=== PATIENT | female | born 1955 | race Caucasian/White ===

== ENCOUNTER 2022-06-20 07:18 | Observation (INO) ==
--- NOTE | 2022-05-08 13:38 | PAT Medication Instructions ---
Medication Instructions Date of Service May 08, 2022 Home Medications Medication Instructions Recorded Romel García #1 ea 04/02/22 cyclobenzaprine 10 mg tablet 10 mg PO BID PRN Fish Oil 1 cap PO QAM famotidine 40 mg tablet 40 mg PO QPM lisinopril 20 mg-hydrochlorothiazide 25 mg tablet 1 tab PO QAM methimazole 5 mg tablet 5 mg PO QAM oxybutynin chloride 10 mg tablet,extended release 24 hr 10 mg PO QAM pantoprazole 40 mg tablet,delayed release 40 mg PO QAM pramipexole 0.5 mg tablet 0.5 mg PO HS simvastatin 40 mg tablet 40 mg PO QPM cholecalciferol (vitamin D3) 125 mcg (5,000 unit) tablet (Vitamin D3) 125 mcg PO DAILY escitalopram oxalate 20 mg tablet (Lexapro) 20 mg PO QAM tumeric 100 mg-rafi 150 mg-olive 50 mg-oreg 150 mg-caprylate capsule 1 cap PO BID vitamin E 200 unit capsule 400 unit PO DAILY STOP taking 2 weeks before surgery (or as soon as possible if surgery is within 2 weeks) Fish Oil 1 cap PO QAM tumeric 100 mg-rafi 150 mg-olive 50 mg-oreg 150 mg-caprylate capsule 1 cap PO BID vitamin E 200 unit capsule 400 unit PO DAILY DO NOT take the morning of surgery cyclobenzaprine 10 mg tablet 10 mg PO BID PRN lisinopril 20 mg-hydrochlorothiazide 25 mg tablet 1 tab PO QAM oxybutynin chloride 10 mg tablet,extended release 24 hr 10 mg PO QAM cholecalciferol (vitamin D3) 125 mcg (5,000 unit) tablet (Vitamin D3) 125 mcg PO DAILY Take morning of surgery With a small sip of water, OTHERWISE NOTHING TO EAT OR DRINK AFTER MIDNIGHT: methimazole 5 mg tablet 5 mg PO QAM pantoprazole 40 mg tablet,delayed release 40 mg PO QAM escitalopram oxalate 20 mg tablet (Lexapro) 20 mg PO QAM Take evening before surgery cyclobenzaprine 10 mg tablet 10 mg PO BID PRN (if needed) famotidine 40 mg tablet 40 mg PO QPM pramipexole 0.5 mg tablet 0.5 mg PO HS simvastatin 40 mg tablet 40 mg PO QPM Other Notes If you have any questions please call us at [phone] or [phone] or [phone] or [phone]
--- NOTE | 2022-05-12 13:24 | Anesthesiology Consultation ---
Date of Service May 12, 2022 Assessment & Plan (1) Encounter for pre-operative examination: - COVID screening: Per assessment on 05/12/2022: Travel screen-cruise to [place] planned returning 05/31/22, no known COVID-19 positive contacts or current COVID- 19 related symptoms in past 2 weeks. Pt vaccinated. Surgeon arranging preop COVID testing, scheduled 06/18/2022. Awaiting results. Chart Review Chart Review: Acceptable Risk for Surgery and Patient seen in Pre Admission Testing Teaching & Discussion Pre-Anesthesia Teaching/Discussion Notes: Instructed NPO after midnight before surgery, except medications with 15 cc of water. Medication instructions provided according to the PAT guidelines. History Surgery Operation Date: 06/20/22 07:00 Proposed Procedures p Right Total Knee Arthroplasty - James Edwards DO Height/Weight Height: 5 ft 2 in Weight: 97.5 kg Allergies Allergy/AdvReac Type Severity Reaction Status Date / Time No Known Allergies Allergy Verified 05/08/22 10:55 Medications Home Medications Medication Instructions Recorded Confirmed Last Taken Wheeled Walker #1 ea 04/02/22 04/02/22 Unknown cyclobenzaprine 10 mg tablet 10 mg PO BID PRN 04/02/22 05/08/22 Unknown docosahexaenoic acid (dha)-epa 120 1 cap PO QA 04/02/22 05/08/22 Unknown mg-180 mg capsule (Fish Oil) famotidine 40 mg tablet 40 mg PO QPM 04/02/22 05/08/22 Unknown lisinopril 20 1 tab PO QAM 04/02/22 05/08/22 Unknown mg-hydrochlorothiazide 25 mg tablet methimazole 5 mg tablet 5 mg PO QAM 04/02/22 05/08/22 Unknown oxybutynin chloride 10 mg 10 mg PO QAM 04/02/22 05/08/22 Unknown tablet,extended release 24 hr pantoprazole 40 mg tablet,delayed 40 mg PO QAM 04/02/22 05/08/22 Unknown release pramipexole 0.5 mg tablet 0.5 mg PO HS 04/02/22 05/08/22 Unknown simvastatin 40 mg tablet 40 mg PO QPM 04/02/22 05/08/22 Unknown cholecalciferol (vitamin D3) 125 125 mcg PO DAILY 05/08/22 05/08/22 Unknown mcg (5,000 unit) tablet (Vitamin D3) escitalopram oxalate 20 mg tablet 20 mg PO QAM 05/08/22 05/08/22 Unknown (Lexapro) tumeric 100 mg-rafi 150 mg-olive 1 cap PO BID 05/08/22 05/08/22 Unknown 50 mg-oreg 150 mg-caprylate capsule vitamin E 200 unit capsule 400 unit PO DAILY 05/08/22 05/08/22 Unknown Past Medical History Medical History (Updated 05/12/22 @ 13:40 by Avis Veliz PA-C) Acid reflux controlled, stable per pt Depression Fibromyalgia Hiatal hernia High cholesterol History of stomach ulcers Hx of cervical cancer "atypical cells" Hypertension controlled, stable per pt Hyperthyroidism Migraine Overactive bladder Prediabetes Thyroid nodule Patient denies h/o stroke, seizures, heart attack, heart failure, blood clots or blood transfusions. Exercise / Class Metabolic Activity II 4-5 Yardwork/Stairs/Walk up hill (denies CP or SOB with 1 FOS) Past Family History Family History Sister Family history of diabetes mellitus Other No family history of adverse response to anesthesia Past Surgical History Surgical History H/O foot surgery rt/left hammertoe and bunion correction History of colonoscopy History of conization of cervix History of esophagogastroduodenoscopy (EGD) History of tooth extraction Nausea and vomiting after administration of anesthetic agent Past Anesthesia History No Hx of Anesthesia Complications and No Family Hx of Anesthesia Complications History of PONV No Hx of Motion Sickness and History of PONV (denies needing scop patch) Social History Smoking Status: Never smoker Do You Dip or Chew Tobacco: No Hx Alcohol Use: No substance use type: does not use Review of Systems Snoring, denies witnessed apneas. Patient denies chest pain, shortness of breath, dyspnea on exertion, fever, chills, cough, wheezing, or palpitations. Physical Exam Vital Signs Vitals BP 129/80 P 79 TEMP 98.3 SP02 96% on RA RESP 17 Physical Full cervical extension range of motion without pain TMD 3.5 finger breadths Mallampati Score 2 Dentition: intact, several missing teeth; denies chipped or loose teeth, caps/crowns, implants or bridges Lungs: normal respiratory effort. Clear throughout to auscultation, no adventitious breath sounds Cardiac: regular rate and rhythm, no murmurs noted Carotid arteries: negative bruit bilat Lab Results Anesthesia Preop Results Results Anesthesia Widget: WBC 4.54 K/uL (4.8-10.8) L 05/12/22 Hgb 13.9 g/dL (12.0-16.0) 05/12/22 Hct 41.0 % (37-47) 05/12/22 Plt 275 K/uL (130-400) 05/12/22 Na 139 mmol/L (136-145) 05/12/22 K 3.7 mmol/L (3.5-5.1) 05/12/22 Cl 105 mmol/L (98-107) 05/12/22 CO2 27 mmol/L (21-32) 05/12/22 BUN 10 mg/dl (6-23) 05/12/22 Creat 0.61 mg/dl (0.6-1.2) 05/12/22 Glucose Level 91 mg/dl (70-99(Fasting)) 05/12/22 PT 10.7 Seconds (9.0-12.0) 05/12/22 PTT 26.6 Seconds (21.0-31.0) 05/12/22 INR 1.0 (0.9-1.1) 05/12/22 HA1c 5.6 % (4.5-5.6) 05/12/22 Blood Type B Positive 05/12/22 Antibody Screen NEGATIVE 05/12/22 Testing Electrocardiogram Date: 05/12/22 NSR, rate 71 bpm Chest X-Ray Date: 05/12/22 Lung volumes are normal. Lungs are clear. There is no pneumothorax or pleural effusion. There is mild cardiomegaly. Mediastinal contours are normal. There is no evidence for pulmonary edema. IMPRESSION: No acute cardiopulmonary findings. Mild cardiomegaly.
--- NOTE | 2022-06-19 12:17 | History & Physical Report ---
Date of Service June 19, 2022 Assessment & Plan (1) Osteoarthritis of right knee: We will proceed with a right total knee arthroplasty. Postoperatively she will be started on aspirin for DVT prophylaxis and kept overnight in the hospital for postoperative medical management. She plans to have the hospital set up home health for discharge. History of Present Illness Chief Complaint: Osteoarthritis of the right knee. Primary Care Provider: Danna Hensley PA-C Ailyn is a pleasant 66-year-old female who has been dealing with a year long history of right knee pain. She twisted her knee about a year ago. She has been having knee pain since. She has been following up with [facility]. She has had x-rays as well as injections. She has done physical therapy without relief. She is still struggling with her right knee. It swells all the time. She has trouble walking long distances or going upand down stairs. X-rays and clinical examination by diagnostic for advanced arthritis of the right knee. After failing conservative treatment, she has elected proceed with a right total knee arthroplasty. Allergies Allergy/AdvReac Type Severity Reaction Status Date / Time No Known Allergies Allergy Verified 05/08/22 10:55 Home Medications Medication Instructions Recorded Confirmed Type Wheeled Walker #1 ea 04/02/22 04/02/22 Rx cyclobenzaprine 10 mg tablet 10 mg PO BID PRN Pain 04/02/22 05/08/22 History docosahexaenoic acid (dha)-epa 120 1 cap PO QAM 04/02/22 05/08/22 History mg-180 mg capsule (Fish Oil) famotidine 40 mg tablet 40 mg PO QPM 04/02/22 05/08/22 History lisinopril 20 1 tab PO QAM 04/02/22 05/08/22 History mg-hydrochlorothiazide 25 mg tablet methimazole 5 mg tablet 5 mg PO QAM 04/02/22 05/08/22 History oxybutynin chloride 10 mg 10 mg PO QAM 04/02/22 05/08/22 History tablet,extended release 24 hr pantoprazole 40 mg tablet,delayed 40 mg PO QAM 04/02/22 05/08/22 History release pramipexole 0.5 mg tablet 0.5 mg PO HS 04/02/22 05/08/22 History simvastatin 40 mg tablet 40 mg PO QPM 04/02/22 05/08/22 History cholecalciferol (vitamin D3) 125 125 mcg PO DAILY 05/08/22 05/08/22 History mcg (5,000 unit) tablet (Vitamin D3) escitalopram oxalate 20 mg tablet 20 mg PO QAM 05/08/22 05/08/22 History (Lexapro) tumeric 100 mg-rafi 150 mg-olive 1 cap PO BID 05/08/22 05/08/22 History 50 mg-oreg 150 mg-caprylate capsule vitamin E 200 unit capsule 400 unit PO DAILY 05/08/22 05/08/22 History Past Med/Surg History Medical History Acid reflux controlled, stable per pt Depression Fibromyalgia Hiatal hernia High cholesterol History of stomach ulcers Hx of cervical cancer "atypical cells" Hypertension controlled, stable per pt Hyperthyroidism Migraine Overactive bladder Prediabetes Thyroid nodule Surgical History H/O foot surgery rt/left hammertoe and bunion correction History of colonoscopy History of conization of cervix History of esophagogastroduodenoscopy (EGD) History of tooth extraction Nausea and vomiting after administration of anesthetic agent Family History Sister Family history of diabetes mellitus Other No family history of adverse response to anesthesia Social History Smoking Status: Never smoker Second Hand Exposure: No; Do You Dip or Chew Tobacco: No; Hx Alcohol Use: No Preferred Language: Belarusian Clinical Ob Required: No Beliefs That Will Affect Care: None Current Living Situation: Spouse Feels Safe at Home: Yes Safety Concerns: Feels Safe At This Time Assistive Devices: Glasses Review of Systems All systems reviewed & are unremarkable except as noted in HPI & below. Physical Exam On physical examination of the right knee, she has a slight varus deformity. She has range of motion of 0 to 120 degrees. She has no instability. She has pain of the distal medial femoral condyle and over the medial joint line.. Constitutional WD/WN, vitals as above Eyes PERRL, conjunctivae normal, anicteric sclerae ENMT external ear and nose normal, oropharynx normal Neck trachea midline, no thyromegaly Respiratory normal respiratory effort, lungs clear to auscultation Cardiovascular RRR, no murmur, no edema Gastrointestinal (Abdomen) normal bowel sounds, soft, nontender, no hepatosplenomegaly Skin no rashes, warm and dry Psychiatric A+Ox3, euthymic affect Results & Data Results & Data Laboratory Results . Diagnostic Findings X-rays of the right knee show advanced osteoarthritis with joint space narrowing, osteophyte formation, and [id number] articulation. PG Care Time/CCT Total # of Minutes Spent Total Time Spent with Patient: Total time spent is greater than 50% in coordination of care (as documented) at patient's floor/unit and/or counseling patient: Coding Level of Care Code None Diagnoses Osteoarthritis of right knee M17.11
--- NOTE | 2022-06-20 06:38 | History & Physical Bridge Note ---
Date of Service June 20, 2022 History & Physical Bridge Note I have examined the patient, reviewed the History & Physical and in the interval since the performance of the History & Physical I have noted the following changes of clinical significance: no changes noted
[~2022-06-20 07:18] MED LIST: ACETAMINOPHEN 500 MG TAB PO SCH; ATROPINE SULFATE 0.1 MG/ML 10ML SYR IV PRN; BUPIVACAINE 0.5 % 5 MG/1 ML PF 10ML VIAL ONE; FAMOTIDINE 20 MG TAB PO SCH; GABAPENTIN 300 MG CAP PO SCH; Ketorolac (*for OR use only*) 30 MG, dexAMETHasone 4 MG, KETAMINE HCL (**OR use only) 1... INFIL SCH; LR 500ML BOLUS, THEN 15ML/HR IV SCH; LR 60ML/HR IV SCH; MIDAZOLAM HCL 1 MG/ML 2ML VIAL ONE; ONDANSETRON INJ 2 MG/ML 2 ML VIAL IV PRN; ORTHO JOINT ANESTHETIC ONE; ROPIVACAINE 0.5% 5 MG/ML 30 ML VIAL ONE; TRANEXAMIC ACID 1,000 MG **IV Intra-op IV SCH; TRANEXAMIC ACID 1,000 MG **IV Pre-op IV SCH; ceFAZolin 2000MG 2,000 MG/15 ML SYR IV SCH; dexAMETHasone 4 MG TAB PO SCH; ePHEDrine sulfate 50 MG/ML AMP IV PRN; fentaNYL citrate 100 MCG/2 ML VIAL IV PRN; fentaNYL citrate 100 MCG/2 ML VIAL ONE
[2022-06-20] MEDS ORDERED: SCOPOLAMINE 1 MG TDSY TD ONE (07:52)
[2022-06-20] MEDS ORDERED: CHECK SCOPOLAMINE PATCH PLACEMENT SCH (08:00)
[2022-06-20] MEDS ORDERED: SCOPOLAMINE 1 MG TDSY TD SCH (08:00)
--- NOTE | 2022-06-20 09:23 | Operative Report ---
PG Post Operative Report Pre & Post Diagnosis Operation Date: 06/20/22 08:15 Pre-Op Diagnosis: DJD Right Knee Post-Op Diagnosis: DJD Right Knee I identified the patient and participated in the time-out.: Yes Procedure Operation Date: 06/20/22 08:15 Actual Procedures p Right Total Knee Arthroplasty(Right) - James Edwards DO Surgeon James Edwards DO Logistics Supply Officer James López PA-C Estimated Blood Loss 30 Findings Consistent with Post-Op Diagnosis Specimens Right femoral and tibial bone Description of Procedure Implants used: I used a Jaymie Persona total knee arthroplasty system with a size 6 standard femur, D tibia, 28 oval patella, and a size 12 medial congruent polyethylene bearing. All components were cemented in place with Biomet cement. Raisa arrived [facility] for the above procedure. She was seen in the preoperative holding area and the operative extremity was identified and signed. She was given a preoperative antibiotic, TXA, a spinal anesthetic and an adductor nerve block. She was taken back to the operating room and laid on the table in supine position. She was given basic sedation. The operative knee was then prepped and draped in sterile fashion. A timeout was done, and the patient and the operative extremity was properly identified. A midline incision was made directly over the patella. Dissection was taken down to the extensor mechanism. A subvastus arthrotomy was used. The medial retinaculum was released and the fat pad was mostly excised. The knee was flexed and the ACL, PCL, and meniscus were removed. A drill was sent down the center of the femoral canal followed by an intramedullary silvana. Off that silvana a distal femoral cutting block was placed. 9 mm was resected off the distal femur at 5 of valgus. A posterior referencing AP sizing guide was then placed on the distal femur. The femur measured to be a size 6. 2 drill holes were placed in 3 of external rotation. A 4-in-1 cutting block was then impacted into place. Anterior, posterior, and chamfer cuts were then made. The proximal tibia was then exposed. An external tibial alignment guide was placed. A tibial cut guide was then anchored in place and the proximal tibia was then resected. The posterior aspect of the knee was then opened up and any additional meniscus fragments and osteophytes were removed. The tibia measured to be a size D. The tibial plate was then placed in the appropriate rotation and the tibia was drilled and punched. Trial components were then placed. I used a size 12 medial congruent polyethylene insert. The knee was brought through a full range of motion and felt to be stable. The peg holes for the femoral component were then drilled. The patella was then everted and 9 mm was resected off the posterior aspect of the patella. The patella measured to be a size 28 oval. 3 peg holes were then drilled. A trial patella was placed. The knee was once again brought through a full range of motion and felt to be stable. Trial components were then removed. The surrounding soft tissues were injected with 100 cc of an orthopedic pain control cocktail. All components were then cemented into place with Biomet cement. The final polyethylene insert was then snapped into place. Once cement was dry the tourniquet was deflated. H emostasis was obtained. A dilute betadyne lavage was then done for 3 minutes. The joint was then irrigated with normal saline solution. The subvastus arthrotomy was then closed with #1 Vicryl suture. The skin was closed with 2-0 Vicryl, 3-0V lock suture, and gabriella. A soft compressive dressing was placed. She was then transferred to a hospital bed and taken to the postanesthesia care unit in stable condition. She tolerated the procedure well. James López PA-C, was present for the entire procedure. He was critical for patient positioning, prepping, draping, retraction exposure, wound closure and application of sterile dressing. I attest to the content of the Intraoperative Record and any orders documented therein. Any exceptions are noted below.
[2022-06-20] MEDS ORDERED: PROPOFOL IV EMULSION 10 MG/ML 20 ML VIAL IV ONE (09:28)
[2022-06-20] MEDS ORDERED: LIDOCAINE 2% MPF LOCAL 5 ML VIAL INFIL ONE (09:28)
--- NOTE | 2022-06-20 10:25 | XRay Report ---
RIGHT KNEE 2 VIEWS History: Right total knee arthroplasty. Degenerative arthritis. Postop. FINDINGS: The patient is status post a right total knee arthroplasty. The hardware is intact. No frac ture or dislocation. Skin gabriella are in place. IMPRESSION: Right total knee arthroplasty. No evidence for hardware complication. ACT 112: Negative or not required by law. Electronically signed by: Og Martin M.D. 06/20/2022 10:23 AM
[2022-06-20] MEDS ORDERED: HYDROmorphone INJ 0.5 MG/0.5 ML SYR IV PRN (10:38)
[2022-06-20] MEDS ORDERED: bisacodyL 10 MG SUPP PR PRN (10:38)
[2022-06-20] MEDS ORDERED: MAGNESIUM HYDROXIDE SUSP 30 ML UDC PO PRN (10:38)
[2022-06-20] MEDS ORDERED: METOCLOPRAMIDE HCL INJ 5 MG/ML 2 ML VIAL IV PRN (10:38)
[2022-06-20] MEDS ORDERED: NALOXONE HCL 0.4 MG/1 ML VIAL/CARP IV PRN (10:38)
[2022-06-20] MEDS ORDERED: ONDANSETRON INJ 2 MG/ML 2 ML VIAL IV PRN (10:38)
[2022-06-20] MEDS: SODIUM CHLORIDE 0.9% 1000ML 1,000 ML IV SCH ×2 (10:57→20:25)
[2022-06-20] MEDS: KETOROLAC 30 MG/ML VIAL IV SCH ×2 (11:48→17:40)
--- NOTE | 2022-06-20 12:53 | Anesthesiology Progress Note ---
Date of Service June 20, 2022 Anesthesia Post Procedure Vital Signs Vital Signs: Temp Pulse Pulse Resp BP BP Pulse Ox 06/20/22 12:25 98.4 F 71 18 115/71 94 06/20/22 11:27 98.2 F 61 20 94/59 L 94 06/20/22 10:30 98.1 F 63 18 110/80 94 06/20/22 11:03 97.7 F 61 20 110/66 95 06/20/22 10:20 97.7 F 61 12 117/71 93 06/20/22 10:15 65 15 125/69 94 06/20/22 10:05 62 14 123/72 100 06/20/22 09:55 61 19 112/69 100 06/20/22 09:45 97.2 F L 68 16 110/68 99 06/20/22 07:38 98.6 F 75 22 156/103 H 95 O2 Del Method O2 Flow Rate 06/20/22 12:25 06/20/22 11:27 06/20/22 10:30 Room Air 06/20/22 11:03 Room Air 06/20/22 10:20 Room Air 06/20/22 10:15 Room Air 06/20/22 10:05 Oxymask 06/20/22 09:55 Oxymask 06/20/22 09:45 Oxymask 06/20/22 07:38 Room Air Pain Intensity Right Knee: Pain Intensity: 2 Transfer of Care Handoff Completed per policy Notes Mental Status: alert / awake / arousable and participated in evaluation Patient Amnestic to Procedure: Yes Nausea / Vomiting: adequately controlled Pain: adequately controlled Airway Patency, RR, SpO2: stable & adequate BP & HR: stable & adequate Hydration State: stable & adequate Neuraxial Anesthesia: was administered and sensory block is resolving Anesthetic Complications: no major complications apparent and Pt Satisfied with anesthetic care
[2022-06-20] MEDS: oxyCODONE HCL IR 5 MG TAB (IMMEDIATE RELEASE) PO PRN ×2 (13:39→17:40)
[2022-06-20] MEDS: ACETAMINOPHEN 500 MG TAB PO SCH (15:28)
[2022-06-20] MEDS: ceFAZolin 2000MG 2,000 MG/15 ML SYR IV SCH (15:28)
[2022-06-20] MEDS: DOCUSATE SODIUM 100 MG CAP PO SCH (20:54)
[2022-06-20] MEDS: ASPIRIN 81 MG ECTAB PO SCH (20:54)
[2022-06-20] MEDS ORDERED: PRAMIPEXOLE DIHYDROCHLO 0.5 MG TAB PO SCH (21:00)
[2022-06-20] MEDS ORDERED: SENNA 8.6 MG TAB PO SCH (21:00)
[2022-06-20] MEDS ORDERED: SIMVASTATIN 40 MG TAB PO SCH (21:00)
[2022-06-20] MEDS ORDERED: FAMOTIDINE 40 MG TABLET PO SCH (21:00)
[2022-06-21] MEDS: ceFAZolin 2000MG 2,000 MG/15 ML SYR IV SCH (00:22)
[2022-06-21] MEDS: KETOROLAC 30 MG/ML VIAL IV SCH ×3 (00:22→11:28)
[2022-06-21] MEDS: ACETAMINOPHEN 500 MG TAB PO SCH ×2 (00:22→07:51)
[2022-06-21] MEDS: oxyCODONE HCL IR 5 MG TAB (IMMEDIATE RELEASE) PO PRN (01:48)
--- NOTE | 2022-06-21 07:36 | Orthopedic Progress Note ---
Date of Service June 21, 2022 Assessment & Plan (1) Status post right knee replacement: Overall she is doing very well. She is not having much pain in the right knee. She will be seen by physical therapy today for ambulation and range of motion exercises. She is on aspirin for DVT prophylaxis. She can be discharged home later today. She will follow-up with orthopedics in 2 weeks. Wilfredo Kline was seen and examined at bedside this morning. Overall she is doing very well. She is not any much pain in the right knee. She has been up and ambulating to the bathroom. She has no complaints.. Review of Systems All systems reviewed & are unremarkable except as noted in HPI & below. Physical Exam On physical examination of the right knee, the dressing is clean and dry. Her leg is out full extension. She has active dorsiflexion plantarflexion of the right ankle.. Results & Data Results & Data Laboratory Results . Diagnostic Findings Postoperative x-rays of the right knee show the prosthesis to be in anatomic alignment without any evidence of fracture, dislocation, or loosening. PG Care Time/CCT Total # of Minutes Spent Total Time Spent with Patient: Total time spent is greater than 50% in coordination of care (as documented) at patient's floor/unit and/or counseling patient: Coding Level of Care Code 98325 Post Operative Follow-Up Diagnoses Status post right knee replacement Z96.651
--- NOTE | 2022-06-21 07:37 | Discharge Summary ---
Date of Service June 21, 2022 Admission HPI (Per Admitting) Ailyn is a pleasant 66-year-old female who has been dealing with a year long history of right knee pain. She twisted her knee about a year ago. She has been having knee pain since. She has been following up with [facility]. She has had x-rays as well as injections. She has done physical therapy without relief. She is still struggling with her right knee. It swells all the time. She has trouble walking long distances or going upand down stairs. X-rays and clinical examination by diagnostic for advanced arthritis of the right knee. After failing conservative treatment, she has elected proceed with a right total knee arthroplasty. Admission Exam (Per Admitting) On physical examination of the right knee, she has a slight varus deformity. She has range of motion of 0 to 120 degrees. She has no instability. She has pain of the distal medial femoral condyle and over the medial joint line.. Principal Diagnosis Same as "Discharge Diagnosis" noted below under Discharge Instructions. Discharge Exam On physical examination of the right knee, the dressing is clean and dry. Her leg is out full extension. She has active dorsiflexion plantarflexion of the right ankle.. Discharge Data Procedures Performed Operation Date: 06/20/22 08:15 Actual Procedures p Right Total Knee Arthroplasty(Right) - James Edwards DO Ordered Studies 06/20/22 05:00 US - OR guided needle placemen Routine Hospital Course (1) Status post right knee replacement: On June 20, 2022 Ailyn arrived at [facility] and underwent a right knee replaced without complication. She had a spinal anesthetic. Postoperatively she was started on aspirin for DVT prophylaxis and transferred to the general orthopedic floors. Her hospital course was uneventful. On postop day #1, her vital signs were stable and her pain was well controlled. She was able to participate well with physical therapy doing ambulation and range of motion exercises. She was then discharged home. She will follow-up with orthopedics in 2 weeks. PG Care Time/CCT Total # of Minutes Spent Total Time Spent with Patient: Total time spent is greater than 50% in coordination of care (as documented) at patient's floor/unit and/or counseling patient: Discharge Plan Discharge Items Patient Disposition: Home - Home Health Services Reason For Visit: DJD Right Knee Discharge Diagnosis: Right knee replacement Activity: As commented below Non-emergency contact: Surgeon Call non-emergency contact if: your wound has increased redness and your wound has increased drainage Follow-up/Referrals: Danna Hensley PA-C [Primary Care Provider] - Diet: Regular Addtl Attending Provider Instructions: Activity and Therapy Recommendations: * If you are using [facility] then therapy will be provided at your home until they feel you have accomplished all of your goals. * If you are using [facility] then Physical Therapy will be provided until they feel you are ready to start Outpatient Physical Therapy. * If you are not using home therapy then Outpatient Physical Therapy should start about 3-5 days from your day of surgery. Therapy will last about 6-10 weeks * It is important not to put a pillow under your knee when you are relaxing or sleeping. It is just as important to make sure you are getting your knee perfectly straight as it is to regain your knee bend. * You were shown a series of exercises in the hospital. Do these exercises three times each day including the exercises you were shown in physical therapy. * Get up and walk several times each day. For the first four weeks, try not to stand or walk for more than one hour at a time. If you do stand or walk for more than one hour, you will not hurt anything, but your leg will likely swell. * As you feel comfortable, you may change from the walker or crutches to a cane and then to independent walking. Medications: * Narcotic You will likely be sent home from the hospital with a prescription for the narcotic pain medication that worked best throughout your stay. * Aspirin Most patients will be required to take Aspirin 81mg twice a day for 6 weeks after surgery. This is obtained [id number] and a prescription is not necessary. * Other medications may be prescribed for specific circumstances. If you have any questions, please call the office at . * Resume previous home medications unless otherwise instructed TEDs/Elastic Stockings: The white elastic stockings help limit swelling and prevent blood clots from forming in your legs.~ The more you wear them, the more they work. Wear them for six weeks. Dressing Care: The dressing can be changed after physical therapy on postop day #1. Daily dry dressing changes for a few days, especially if the incision is still draining some. If the incision is not draining then you may leave the gabriella open to air. If there is a little bit of drainage or if the gabriella are getting stuck on your clothing then cover the incision with a dry dressing. The gabriella will be removed at your 2 week follow-up appointment. Showering: You may shower 5 days from the day of surgery as long as the incision is no longer draining. You may shower with the gabriella exposed. Let soapy water run over the gabriella and pat them dry. Do not scrub or soak the incision. Things To Watch For: * Drainage from the incision site that occurs more than one week after your surgery. * Increased redness at the incision site. * Fever above 102 degrees Fahrenheit. * Unusual chest pain or shortness of breath. * Call [facility] at with any of the above problems Follow-Up Visit: Follow-up with Dr. Edwards's PA (James López) 2-3 weeks after your day of surgery. He will remove your gabriella and answer any questions. If you have any additional questions or concerns, Dr Edwards is usually in the office at the same time and will be available An appointment was probably scheduled when you signed-up for surgery in the office. If you have any questions call Office Instructions: More detailed instructions as well as Frequently Asked Questions were provided in a folder by our office when you signed-up for surgery. Please review these instructions when you get home. If you have any further questions or concerns, please feel free to call the office at [phone] Pending Studies at Discharge: No Stand-Alone Forms: [facility], Smoking Cessation Medications and DC Order Prescriptions: New oxycodone-acetaminophen 5-325 mg tablet 1 tab PO Q6H PRN (Reason: pain) Qty: 30 0RF aspirin 81 mg Tablet,Delayed Release (Dr/Ec) 81 mg PO BID 42 Days Qty: 84 0RF Continued cyclobenzaprine 10 mg tablet 10 mg PO BID PRN (Reason: Pain) oxybutynin chloride 10 mg tablet extended release 24 hr 10 mg PO QAM pantoprazole 40 mg tablet,delayed release (DR/EC) 40 mg PO QAM famotidine 40 mg tablet 40 mg PO QPM lisinopril-hydrochlorothiazide 20-25 mg tablet 1 tab PO QAM methimazole 5 mg tablet 5 mg PO QAM pramipexole 0.5 mg tablet 0.5 mg PO HS simvastatin 40 mg tablet 40 mg PO QPM Fish Oil 120-180 mg capsule 1 cap PO QAM (DME) Wheeled Walker Misc See Rx Instructions .MEDSUPPLY Qty: 1 0RF Rx Instructions: As directed vitamin E 200 unit Capsule 400 unit PO DAILY escitalopram oxalate [Lexapro] 20 mg Tablet 20 mg PO QAM cholecalciferol (vitamin D3) [Vitamin D3] 125 mcg (5,000 unit) Tablet 125 mcg PO DAILY [id number]-oreg-capryl 100 mg-150 mg- 50 mg-150 mg Capsule 1 cap PO BID Discharge Orders: Discharge Order (Routine); Ordered 06/21/22 Ordered By: James Edwards Admission Data Admit Date/Time: 06/20/22 09:47 Attending Provider: James Edwards Admit Provider: James Edwards Primary Care Provider: Danna Hensley
[2022-06-21] MEDS: ASPIRIN 81 MG ECTAB PO SCH (07:51)
[2022-06-21] MEDS: DOCUSATE SODIUM 100 MG CAP PO SCH (07:52)
[2022-06-21] MEDS ORDERED: dexAMETHasone 4 MG TAB PO SCH (08:00)
[2022-06-21] MEDS ORDERED: MULTIVITAMIN TAB PO SCH (09:00)
[2022-06-21] MEDS ORDERED: OXYBUTYNIN CHLORIDE XL 5 MG TABCR PO SCH (09:00)
[2022-06-21] MEDS ORDERED: LISINOPRIL/HCTZ 20/25MG 1 TAB PO SCH (09:00)
[2022-06-21] MEDS ORDERED: methIMAzole 5 MG TABLET PO SCH (09:00)
[2022-06-21] MEDS ORDERED: ESCITALOPRAM OXALATE 20 MG TAB PO SCH (09:00)
== END 2022-06-21 12:50 | disposition home health service (06) ==
LOC: 3E 07:18 → ASU 07:18
DX: Z79.899 Other long term (current) drug therapy; M17.11 Unilateral primary osteoarthritis, right knee

== ENCOUNTER 2025-05-12 06:32 | Observation (INO) ==
--- NOTE | 2025-03-16 14:03 | PAT Medication Instructions ---
Medication Instructions Date of Service March 16, 2025 Home Medications Medication Instructions Recorded Romel García #1 ea 04/02/22 cyclobenzaprine 10 mg tablet 10 mg PO UD PRN muscle spasms lisinopril 20 mg-hydrochlorothiazide 25 mg tablet 1 tab PO QAM methimazole 5 mg tablet 5 mg PO QAM oxybutynin chloride 10 mg tablet,extended release 24 hr 10 mg PO QAM pantoprazole 40 mg tablet,delayed release 40 mg PO UD PRN Acid Reflux pramipexole 0.5 mg tablet 1 mg PO HS simvastatin 40 mg tablet 40 mg PO QPM cholecalciferol (vitamin D3) 125 mcg (5,000 unit) tablet (Vitamin D3) 125 mcg PO DAILY escitalopram oxalate 20 mg tablet (Lexapro) 20 mg PO QAM turmeric 100 mg-rafi 150 mg-olive 50 mg-oreg 150 mg-capryl capsule 1 cap PO QAM vitamin E 200 unit capsule 400 unit PO DAILY albuterol sulfate 90 mcg/actuation aerosol inhaler 1 inh inhalation UD PRN asthma amoxicillin 500 mg tablet 0 mg PO UD PRN pre dental ascorbic acid (vitamin C) 500 mg tablet (Vitamin C) 500 mg PO QPM beclomethasone dipropionate 40 mcg/actuation HFA breath activated aerosol (Qvar RediHaler) 2 inh inhalation BID Continue as directed amoxicillin 500 mg tablet 0 mg PO UD PRN pre dental STOP taking 2 weeks before surgery (or as soon as possible if surgery is within 2 weeks) turmeric 100 mg-rafi 150 mg-olive 50 mg-oreg 150 mg-capryl capsule 1 cap PO QAM vitamin E 200 unit capsule 400 unit PO DAILY DO NOT take the morning of surgery lisinopril 20 mg-hydrochlorothiazide 25 mg tablet 1 tab PO QAM oxybutynin chloride 10 mg tablet,extended release 24 hr 10 mg PO QAM cholecalciferol (vitamin D3) 125 mcg (5,000 unit) tablet (Vitamin D3) 125 mcg PO DAILY Take morning of surgery With a small sip of water, OTHERWISE NOTHING TO EAT OR DRINK AFTER MIDNIGHT: cyclobenzaprine 10 mg tablet 10 mg PO UD PRN muscle spasms (if needed) methimazole 5 mg tablet 5 mg PO QAM pantoprazole 40 mg tablet,delayed release 40 mg PO UD PRN Acid Reflux (if needed) escitalopram oxalate 20 mg tablet (Lexapro) 20 mg PO QAM albuterol sulfate 90 mcg/actuation aerosol inhaler 1 inh inhalation UD PRN asthma (use if needed; please bring rescue inhaler with you to hospital day of surgery if possible) beclomethasone dipropionate 40 mcg/actuation HFA breath activated aerosol (Qvar RediHaler) 2 inh inhalation BID Take evening before surgery cyclobenzaprine 10 mg tablet 10 mg PO UD PRN muscle spasms (if needed) pantoprazole 40 mg tablet,delayed release 40 mg PO UD PRN Acid Reflux (if needed) pramipexole 0.5 mg tablet 1 mg PO HS simvastatin 40 mg tablet 40 mg PO QPM albuterol sulfate 90 mcg/actuation aerosol inhaler 1 inh inhalation UD PRN ast hma (if needed) ascorbic acid (vitamin C) 500 mg tablet (Vitamin C) 500 mg PO QPM beclomethasone dipropionate 40 mcg/actuation HFA breath activated aerosol (Qvar RediHaler) 2 inh inhalation BID Other Notes If you have any questions please call us at [phone] or [phone] or [phone] or [phone]
--- NOTE | 2025-03-28 12:44 | Anesthesiology Consultation ---
Date of Service March 28, 2025 Assessment & Plan (1) Encounter for pre-operative examination: - Infectious disease screening: Per assessment on 03/28/25- No known recent infectious disease contacts or current infectious disease symptoms. - Outpatient joint assessment: Pt currently scheduled for inpatient pathway. If surgeon requests review for outpatient joint pathway, patient is not recommended candidate for outpatient joint program from anesthesia standpoint based on available information. - S/P Right TKA (06/20/22): SAB (2 attempts) + regional at [facility] Chart Review Chart Review: Acceptable Risk for Surgery and Patient seen in Pre Admission Testing Teaching & Discussion Pre-Anesthesia Teaching/Discussion Notes: Instructed NPO after midnight before surgery,except medications with 15 cc of water. Medication instructions provided according to the PAT guidelines. History Surgery Operation Date: 05/12/25 10:00 Proposed Procedures p Left Total Knee Arthroplasty - James Edwards, Height/Weight Height: 5 ft 2 in Weight: 93 kg Allergies Allergy/AdvReac Type Severity Reaction Status Date / Time No Known Allergies Allergy Verified 03/16/25 09:58 Medications Home Medications Medication Instructions Recorded Confirmed Last Taken Wheeled Walker #1 ea 04/02/22 02/22/25 Unknown cyclobenzaprine 10 mg tablet 10 mg PO UD PRN muscle spasms 04/02/22 03/16/25 06/19/22 09:30 lisinopril 20 1 tab PO QAM 04/02/22 03/16/25 08/30/23 mg-hydrochlorothiazide 25 mg tablet methimazole 5 mg tablet 5 mg PO QAM 04/02/22 03/16/25 08/31/23 07:30 oxybutynin chloride 10 mg 10 mg PO QAM 04/02/22 03/16/25 08/30/23 tablet,extended release 24 hr pantoprazole 40 mg tablet,delayed 40 mg PO UD PRN Acid Reflux 04/02/22 03/16/25 06/19/22 release pramipexole 0.5 mg tablet 1 mg PO HS 04/02/22 03/16/25 08/30/23 simvastatin 40 mg tablet 40 mg PO QPM 04/02/22 03/16/25 08/30/23 cholecalciferol (vitamin D3) 125 125 mcg PO DAILY 05/08/22 03/16/25 08/30/23 mcg (5,000 unit) tablet (Vitamin D3) escitalopram oxalate 20 mg tablet 20 mg PO QAM 05/08/22 03/16/25 08/31/23 07:30 (Lexapro) turmeric 100 mg-rafi 150 1 cap PO QAM 05/08/22 03/16/25 08/30/23 mg-olive 50 mg-oreg 150 mg-capryl capsule vitamin E 200 unit capsule 400 unit PO DAILY 05/08/22 03/16/25 05/30/22 albuterol sulfate 90 mcg/actuation 1 inh inhalation UD PRN asthma 03/16/25 03/16/25 Unknown aerosol inhaler amoxicillin 500 mg tablet 0 mg PO UD PRN pre dental 03/16/25 03/16/25 Unknown ascorbic acid (vitamin C) 500 mg 500 mg PO QPM 03/16/25 03/16/25 Unknown tablet (Vitamin C) beclomethasone dipropionate 40 2 inh inhalation BID 03/16/25 03/16/25 Unknown mcg/actuation HFA breath activated aerosol (Qvar RediHaler) Past Medical History Medical History Aortic stenosis Echo 08/10/24: Mild aortic stenosis. JAYDE (I,D) 1.7cm2, AV mean PG 9.1mmhg Asthma Depression Fibromyalgia High cholesterol History of migraine headaches History of stomach ulcers [place] (hard of hearing) HTN (hypertension) Hx of cervical cancer "Atypical cells" Hypertension Hyperthyroidism Overactive bladder Prediabetes Restless leg syndrome Sleep apnea Diagnosed with UMA + received CPAP device ~3 months ago (compliant with device) Thyroid nodule Hx u/s monitoring yearly "No longer needs yearly monitoring" Exercise / Class Metabolic Activity III < 4 Walking/Shop/Light housework Past Family History Family History Sister Family history of diabetes mellitus Other No family history of adverse response to anesthesia Past Surgical History Surgical History H/O foot surgery R/L hammertoe and bunion correction H/O left cataract extraction History of cholecystectomy History of colonoscopy History of conization of cervix History of esophagogastroduodenoscopy (EGD) History of repair of hiatal hernia History of right cataract surgery History of tooth extraction History of total knee replacement Right TKA (06/20/22): SAB (2 attempts) + regional at [facility] Nausea and vomiting after administration of anesthetic agent Past Anesthesia History No Hx of Anesthesia Complications and No Family Hx of Anesthesia Complications History of PONV History of PONV Social History Smoking Status: Never smoker Do You Dip or Chew Tobacco: No Hx Alcohol Use: No Hx Substance Use: No substance use type: does not use Review of Systems Patient denies chest pain, shortness of breath, fever, chills, cough, wheezing, palpitations. Physical Exam Vital Signs BP 106/69 P 71 TEMP 98.1 SP02 96%RA RESP 18 Physical Full cervical extension range of motion. Full TMJ range of motion. TMD > 3.5 finger breaths Mallampati Score II Dentition: + missing teeth (including lower left side), + crowns Lungs: clear throughout to auscultation Cardiac: regular rate and rhythm, II/ systolic murmur Spine: normal Carotid arteries: negative bruit Extremities: trace non-pitting LE edema Short neck Lab Results Anesthesia Preop Results Results Anesthesia Widget: WBC 5.23 K/ul (4.8-10.8) 03/28/25 Hgb 14.5 g/dl (12.0-16.0) 03/28/25 Hct 43.7 % (37.0-47.0) 03/28/25 Plt 313 K/uL (130-400) 03/28/25 Na 140 mmol/L (136-145) 03/28/25 K 4.2 mmol/L (3.5-5.1) 03/28/25 Cl 102 mmol/L (98-107) 03/28/25 CO2 32 mmol/L (21-32) 03/28/25 BUN 10 mg/dl (6-23) 03/28/25 Creat 0.56 mg/dl (0.6-1.2) L 03/28/25 Glucose Level 78 mg/dl (70-99(Fasting)) 03/28/25 PT 11.2 Seconds (9.0-12.0) 03/28/25 PTT 27 Seconds (21-31) 03/28/25 INR 1.0 (0.9-1.1) 03/28/25 TSH 1.447 uIu/ml (0.300-4.500) 03/28/25 Free T4 1.07 ng/dl (0.61-1.60) 03/28/25 Blood Type B Positive 03/28/25 Antibody Screen NEGATIVE 03/28/25 Testing Electrocardiogram Date: 03/28/25 NSR at 67bpm. "Normal ECG" Chest X-Ray Date: 03/28/25 Findings: + NAD Echocardiogram Date: 08/10/24 EF = greater than 55%. Mild concentric LVH. Mild LAD.The aortic valve is trileaflet. Left coronary cusp calcified and immobile. Mild aortic stenosis. JAYDE (I,D) 1.7cm2; AV mean PG 9.1mmhg. Grade 1 diastolic dysfunction. Stress Test Date: 08/10/24 Normal exercise stress test for ischemia by ECG criteria. Decreased exercise capacity for age. Significant oxygen desaturation with exercise. 90% MPHR. 5 METS. Subsequent formal sleep study testing and CPAP initiation*
--- NOTE | 2025-05-10 12:50 | History & Physical Report ---
Date of Service May 10, 2025 Assessment & Plan (1) Osteoarthritis of left knee: We will proceed with a left total knee arthroplasty. Postoperatively, she will be started on aspirin for DVT prophylaxis and kept overnight in the hospital for postop medical management. She plans to have the hospital set up home health for discharge. History of Present Illness Chief Complaint: Osteoarthritis of the left knee. Primary Care Provider: Danna Hensley PA-C Ailyn is a pleasant 69-year-old female who I did a right knee replacement on in 2021. She has done very well with that. Unfortunately, she is now dealing with left knee pain. X-rays showed a little bit of arthritis, but MRI conferred more advanced arthritis and bony edema in the left knee. After failing conservative treatment, she has elected proceed with a left total knee arthroplasty. . Allergies Allergy/AdvReac Type Severity Reaction Status Date / Time No Known Allergies Allergy Verified 03/16/25 09:58 Home Medications Medication Instructions Recorded Confirmed Type Wheeled Walker #1 ea 04/02/22 02/22/25 Rx cyclobenzaprine 10 mg tablet 10 mg PO UD PRN muscle spasms 04/02/22 03/16/25 History lisinopril 20 1 tab PO QAM 04/02/22 03/16/25 History mg-hydrochlorothiazide 25 mg tablet methimazole 5 mg tablet 5 mg PO QAM 04/02/22 03/16/25 History oxybutynin chloride 10 mg 10 mg PO QAM 04/02/22 03/16/25 History tablet,extended release 24 hr pantoprazole 40 mg tablet,delayed 40 mg PO UD PRN Acid Reflux 04/02/22 03/16/25 History release pramipexole 0.5 mg tablet 1 mg PO HS 04/02/22 03/16/25 History simvastatin 40 mg tablet 40 mg PO QPM 04/02/22 03/16/25 History cholecalciferol (vitamin D3) 125 125 mcg PO DAILY 05/08/22 03/16/25 History mcg (5,000 unit) tablet (Vitamin D3) escitalopram oxalate 20 mg tablet 20 mg PO QAM 05/08/22 03/16/25 History (Lexapro) turmeric 100 mg-rafi 150 1 cap PO QAM 05/08/22 03/16/25 History mg-olive 50 mg-oreg 150 mg-capryl capsule vitamin E 200 unit capsule 400 unit PO DAILY 05/08/22 03/16/25 History albuterol sulfate 90 mcg/actuation 1 inh inhalation UD PRN asthma 03/16/25 03/16/25 History aerosol inhaler amoxicillin 500 mg tablet 0 mg PO UD PRN pre dental 03/16/25 03/16/25 History ascorbic acid (vitamin C) 500 mg 500 mg PO QPM 03/16/25 03/16/25 History tablet (Vitamin C) beclomethasone dipropionate 40 2 inh inhalation BID 03/16/25 03/16/25 History mcg/actuation HFA breath activated aerosol (Qvar RediHaler) Past Med/Surg History Problem List (Updated 05/10/25 @ 12:50 by James Edwards DO) Osteoarthritis of left knee Encounter for pre-operative examination Medical History Aortic stenosis Echo 08/10/24: Mild aortic stenosis. JAYDE (I,D) 1.7cm2, AV mean PG 9.1mmhg Asthma [place] (hard of hearing) HTN (hypertension) Restless leg syndrome History of migraine headaches Sleep apnea Diagnosed with UMA + received CPAP device ~3 months ago (compliant with device) Prediabetes Overactive bladder Thyroid nodule Hx u/s monitoring yearly "No longer needs yearly monitoring" Hx of cervical cancer "Atypical cells" Hyperthyroidism History of stomach ulcers Fibromyalgia Depression Hypertension High cholesterol Surgical History History of right cataract surgery H/O left cataract extraction History of cholecystectomy History of repair of hiatal hernia History of total knee replacement Right TKA (06/20/22): SAB (2 attempts) + regional at [facility] Nausea and vomiting after administration of anesthetic agent H/O foot surgery R/L hammertoe and bunion correction History of esophagogastroduodenoscopy (EGD) History of colonoscopy History of conization of cervix History of tooth extraction Family History Sister Family history of diabetes mellitus Other No family history of adverse response to anesthesia Social History Smoking Status: Never smoker Second Hand Exposure: No; Do You Dip or Chew Tobacco: No; Hx Alcohol Use: No Hx Substance Use: No Preferred Language: Greek Communication Ability: Effective Schedule Maker Required: No Beliefs That Will Affect Care: None Current Living Situation: Spouse Feels Safe at Home: Yes Assistive Devices: CPAP and Other Review of Systems All systems reviewed & are unremarkable except as noted in HPI & below. Physical Exam On physical exam of the left knee, she has tenderness palpation of the distal medial femoral condyle and over the medial joint line. She has good range of motion.. Constitutional WD/WN, vitals as above Eyes PERRL, conjunctivae normal, anicteric sclerae ENMT external ear and nose normal, oropharynx normal Neck trachea midline, no thyromegaly Respiratory normal respiratory effort Cardiovascular RRR, no murmur, no edema Gastrointestinal (Abdomen) normal bowel sounds, soft, nontender, no hepatosplenomegaly Psychiatric A+Ox3, euthymic affect Results & Data Results & Data Laboratory Results . Diagnostic Findings X-rays of the left knee show advanced osteoarthritis with joint space narrowing, osteophyte formation, and near [id number] articulation.. PG Care Time/CCT Total # of Minutes Spent Total Time Spent with Patient: Total time spent is greater than 50% in coordination of care (as documented) at patient's floor/unit and/or counseling patient: Coding Level of Care Code None Diagnoses Osteoarthritis of left knee M17.12
[~2025-05-12 06:32] MED LIST changes: -ACETAMINOPHEN 500 MG TAB PO SCH; -ATROPINE SULFATE 0.1 MG/ML 10ML SYR IV PRN; -BUPIVACAINE 0.5 % 5 MG/1 ML PF 10ML VIAL ONE; -FAMOTIDINE 20 MG TAB PO SCH; -GABAPENTIN 300 MG CAP PO SCH; -Ketorolac (*for OR use only*) 30 MG, dexAMETHasone 4 MG, KETAMINE HCL (**OR use only) 1... INFIL SCH; -LR 500ML BOLUS, THEN 15ML/HR IV SCH; -LR 60ML/HR IV SCH; -MIDAZOLAM HCL 1 MG/ML 2ML VIAL ONE; -ONDANSETRON INJ 2 MG/ML 2 ML VIAL IV PRN; -ORTHO JOINT ANESTHETIC ONE; -TRANEXAMIC ACID 1,000 MG **IV Intra-op IV SCH; -TRANEXAMIC ACID 1,000 MG **IV Pre-op IV SCH; -ceFAZolin 2000MG 2,000 MG/15 ML SYR IV SCH; -dexAMETHasone 4 MG TAB PO SCH; -ePHEDrine sulfate 50 MG/ML AMP IV PRN; -fentaNYL citrate 100 MCG/2 ML VIAL IV PRN; -fentaNYL citrate 100 MCG/2 ML VIAL ONE
--- NOTE | 2025-05-12 06:34 | History & Physical Bridge Note ---
Date of Service May 12, 2025 History & Physical Bridge Note I have examined the patient, reviewed the History & Physical and in the interval since the performance of the History & Physical I have noted the following changes of clinical significance: no changes noted
[2025-05-12] MEDS ORDERED: MIDAZOLAM HCL 1 MG/ML 2ML VIAL ONE (07:02)
[2025-05-12] MEDS ORDERED: fentaNYL citrate PF 100 MCG/2 ML VIAL ONE (07:02)
[2025-05-12] MEDS ORDERED: PROPOFOL IV EMULSION 10 MG/ML 20 ML VIAL IV ONE (07:02)
[2025-05-12] MEDS ORDERED: ONDANSETRON INJ 2 MG/ML 2 ML VIAL ONE (07:09)
[2025-05-12] MEDS: LR 500ML BOLUS, THEN 15ML/HR IV SCH (07:26)
[2025-05-12] MEDS: LR 60ML/HR IV SCH (07:27)
[2025-05-12] MEDS: ACETAMINOPHEN 500 MG TAB PO SCH (07:29)
[2025-05-12] MEDS: dexAMETHasone**PF** 10 MG/ML VIAL IV SCH (07:29)
[2025-05-12] MEDS: GABAPENTIN 300 MG CAP PO SCH (07:29)
[2025-05-12] MEDS: FAMOTIDINE 20 MG TAB PO SCH (07:29)
[2025-05-12] MEDS ORDERED: PROMETHAZINE HCL 6.25 MG in SODIUM CHLORIDE 0.9% 50 ML IV PRN (07:31)
[2025-05-12] MEDS ORDERED: KETOROLAC 30 MG/ML VIAL IV PRN (07:31)
[2025-05-12] MEDS ORDERED: HYDROmorphone INJ 1 MG/ML SYRINGE IV PRN (07:31)
[2025-05-12] MEDS ORDERED: ONDANSETRON INJ 2 MG/ML 2 ML VIAL IV PRN ×2 (07:31→10:30)
[2025-05-12] MEDS ORDERED: ATROPINE SULFATE 0.1 MG/ML 10ML SYR IV PRN (07:31)
[2025-05-12] MEDS ORDERED: ePHEDrine sulfate 50 MG/ML AMP IV PRN (07:31)
[2025-05-12] MEDS: TRANEXAMIC ACID 1,000 MG **IV Pre-op IV SCH (07:36)
[2025-05-12] MEDS: ceFAZolin 2000MG 2,000 MG/15 ML SYR IV SCH ×2 (07:50→14:50)
[2025-05-12] MEDS ORDERED: KETAMINE HCL 10MG/ML SYR ONE (08:07)
[2025-05-12] MEDS: ORTHO JOINT ANESTHETIC ONE (08:15)
[2025-05-12] MEDS: ROPIV 0.5% 246mg, Ketorolac 30mg, EPINEPHrine 0.5mg in NSS INFIL SCH (08:15)
[2025-05-12] MEDS ORDERED: GLYCOPYRROLATE 0.2 MG/ML VIAL ONE (08:18)
[2025-05-12] MEDS: TRANEXAMIC ACID 1,000 MG **IV Intra-op IV SCH (08:43)
--- NOTE | 2025-05-12 09:01 | Operative Report ---
PG Post Operative Report Pre & Post Diagnosis Operation Date: 05/12/25 08:00 Pre-Op Diagnosis: Left Knee Arthritis Post-Op Diagnosis: Left Knee Arthritis I identified the patient and participated in the time-out.: Yes Procedure Operation Date: 05/12/25 08:00 Actual Procedures p Left Total Knee Arthroplasty(Left) - James Edwards DO Surgeon James Edwards DO Communications Attendant Nazario Dupree PA-C Estimated Blood Loss 50 Findings Consistent with Post-Op Diagnosis Specimens Left femoral tibial bone Description of Procedure Implants used: I used a Jaymie Persona total knee arthroplasty system with a size 6 standard femur, C tibia, 28 oval patella, and a size 13 medial congruent polyethylene bearing. All components were cemented in place with Biomet cement. Ailyn arrived [facility] for the above procedure. She was seen in the preoperative holding area and the operative extremity was identified and signed. She was given a preoperative antibiotic, TXA, a spinal anesthetic and an adductor nerve block. She was taken back to the operating room and laid on the table in supine position. She was given basic sedation. The operative knee was then prepped and draped in sterile fashion. A timeout was done, and the patient and the operative extremity was properly identified. A midline incision was made directly over the patella. Dissection was taken down to the extensor mechanism. A medial parapatellar arthrotomy was used. The medial retinaculum was released and the fat pad was mostly excised. The knee was flexed and the ACL, PCL, and meniscus were removed. A drill was sent down the center of the femoral canal followed by an intramedullary silvana. Off that silvana a distal femoral cutting block was placed. 9 mm was resected off the distal femur at 5 of valgus. A posterior referencing AP sizing guide was then placed on the distal femur. The femur measured to be a size 6. 2 drill holes were placed in 3 of external rotation. A 4-in-1 cutting block was then impacted into place. Anterior, posterior, and chamfer cuts were then made. The proximal tibia was then exposed. An external tibial alignment guide was placed. A tibial cut guide was then anchored in place and the proximal tibia was then resected. The posterior aspect of the knee was then opened up and any additional meniscus fragments and osteophytes were removed. The tibia measured to be a size C. The tibial plate was then placed in the appropriate rotation and the tibia was drilled and punched. Trial components were then placed. I used a size 13 medial congruent polyethylene insert. The knee was brought through a full range of motion and felt to be stable. The peg holes for the femoral component were then drilled. The patella was then everted and 9 mm was resected off the posterior aspect of the patella. The patella measured to be a size 28 oval. 3 peg holes were then drilled. A trial patella was placed. The knee was once again brought through a full range of motion and felt to be stable. Trial components were then removed. The surrounding soft tissues were injected with 100 cc of an orthopedic pain control cocktail. All components were then cemented into place with Biomet cement. The final polyethylene insert was then snapped into place. Once cement was dry the tourniquet was deflated. Hemostasis was obtained. A dilute betadyne lavage was then done for 3 minutes. The joint was then irrigated with normal saline solution. The medial parapatellar arthrotomy was then closed with #1 Vicryl suture. The skin was closed with 2-0 Vicryl, 3-0V lock suture, and gabriella. A soft compressive dressing was placed. She was then transferred to a hospital bed and taken to the postanesthesia care unit in stable condition. She tolerated the procedure well. Nazario Dupree PA-C, was present for the entire procedure. He was critical for patient positioning, prepping, draping, retraction exposure, wound closure and application of sterile dressing. I attest to the content of the Intraoperative Record and any orders documented therein. Any exceptions are noted below.
--- NOTE | 2025-05-12 10:13 | XRay Report ---
XR knee LT 1 or 2V routine CLINICAL HISTORY: Surgical Post Op COMPARISON: None FINDINGS: Left knee prosthesis shows no hardware complication. There is expected soft tissue gas. IMPRESSION: Unremarkable postoperative exam. ACT 112: Negative or not required by law. Electronically signed by: Gunner Prado M.D. 05/12/2025 10:11 AM
[2025-05-12] MEDS ORDERED: MAGNESIUM HYDROXIDE SUSP 30 ML UDC PO PRN (10:30)
[2025-05-12] MEDS ORDERED: bisacodyL 10 MG SUPP PR PRN (10:30)
[2025-05-12] MEDS ORDERED: HYDROmorphone INJ 0.5 MG/0.5 ML SYR IV PRN (10:30)
[2025-05-12] MEDS ORDERED: PANTOprazole 40 MG TAB PO PRN (10:30)
[2025-05-12] MEDS ORDERED: ALBUTEROL HFA 8 GM INHALER INH PRN (10:30)
[2025-05-12] MEDS ORDERED: METOCLOPRAMIDE HCL INJ 5 MG/ML 2 ML VIAL IV PRN (10:30)
[2025-05-12] MEDS ORDERED: ACETAMINOPHEN 500 MG TAB PO PRN (10:30)
[2025-05-12] MEDS ORDERED: CYCLOBENZAPRINE HCL 10 MG TAB PO PRN (10:30)
[2025-05-12] MEDS ORDERED: diphenhydrAMINE Capsule 25 MG CAP PO PRN (10:30)
[2025-05-12] MEDS ORDERED: NALOXONE HCL 0.4 MG/1 ML VIAL/CARP IV PRN (10:30)
[2025-05-12] MEDS: oxyCODONE HCL IR 5 MG TAB (IMMEDIATE RELEASE) PO PRN (10:54)
[2025-05-12] MEDS: SODIUM CHLORIDE 0.9% 1,000 ML IV SCH (10:54)
[2025-05-12] MEDS: KETOROLAC TROMETHAMINE 15 MG/ML VIAL IV SCH (10:54)
--- NOTE | 2025-05-12 12:33 | Anesthesiology Progress Note ---
Date of Service May 12, 2025 Anesthesia Post Procedure Vital Signs Vital Signs: Temp Pulse Pulse Resp BP BP Pulse Ox 05/12/25 11:42 36.5 C 71 18 102/63 91 05/12/25 11:15 36.6 C 66 18 100/55 L 92 05/12/25 10:44 36.6 C 73 14 118/70 96 05/12/25 10:15 64 18 130/78 95 05/12/25 10:00 36.5 C 65 20 126/77 95 05/12/25 09:50 70 18 121/71 95 05/12/25 09:40 72 16 118/62 97 05/12/25 09:30 72 18 117/67 95 05/12/25 09:21 36.5 C 76 14 115/62 96 05/12/25 07:03 36.9 C 74 20 156/85 H 95 O2 Del Method 05/12/25 11:42 Room Air 05/12/25 11:15 Room Air 05/12/25 10:44 Room Air 05/12/25 10:15 Room Air 05/12/25 10:00 Room Air 05/12/25 09:50 Room Air 05/12/25 09:40 Room Air 05/12/25 09:30 Room Air 05/12/25 09:21 Room Air 05/12/25 07:03 Room Air Pain Intensity Left Knee: Pain Intensity: 5 Transfer of Care Handoff Completed per policy Notes Mental Status: alert / awake / arousable Patient Amnestic to Procedure: Yes Nausea / Vomiting: adequately controlled Pain: adequately controlled Airway Patency, RR, SpO2: stable & adequate BP & HR: stable & adequate Hydration State: stable & adequate Neuraxial Anesthesia: was administered and sensory block is resolving Anesthetic Complications: no major complications apparent
[2025-05-12] MEDS: PRAMIPEXOLE DIHYDROCHLO 0.5 MG TAB PO SCH (20:08)
[2025-05-12] MEDS: DOCUSATE SODIUM 100 MG CAP PO SCH (20:08)
[2025-05-12] MEDS: SENNA 8.6 MG TAB PO SCH (20:09)
[2025-05-12] MEDS: SIMVASTATIN 40 MG TAB PO SCH (20:09)
[2025-05-12] MEDS: ASPIRIN 81 MG ECTAB PO SCH (20:09)
[2025-05-13] MEDS: dexAMETHasone 4 MG TAB PO SCH (07:13)
[2025-05-13] MEDS: ESCITALOPRAM OXALATE 20 MG TAB PO SCH (07:14)
[2025-05-13] MEDS: OXYBUTYNIN CHLORIDE XL 5 MG TABCR PO SCH (07:14)
[2025-05-13] MEDS: LISINOPRIL/HCTZ 20/25MG 1 TAB PO SCH (07:14)
[2025-05-13] MEDS: methIMAzole 5 MG TABLET PO SCH (07:14)
[2025-05-13] MEDS: MULTIVITAMIN TAB PO SCH (07:15)
[2025-05-13 07:26] VITALS: TEMP 97.9
[2025-05-13] MEDS: FLUTICASONE FUROATE 100MCG 14 PUFFS/INHALER INH SCH (08:18)
--- NOTE | 2025-05-13 10:04 | Orthopedic Progress Note ---
Date of Service May 13, 2025 Assessment & Plan (1) Status post total left knee replacement: Overall she is doing well. She is not having much pain in the left knee. She will be seen by physical therapy today for ambulation and range of motion exercises. The nursing staff can change the dressing after physical therapy. She is on aspirin for DVT prophylaxis. She can be discharged to home later today. She will follow-up with orthopedics in 2 weeks. Wilfredo Robertson was seen and examined at bedside this morning. Overall she is doing very well. She is not having much pain in the left knee. She has been up and ambulating to the bathroom. She has no complaints.. Review of Systems All systems reviewed & are unremarkable except as noted in HPI & below. Physical Exam On physical examination of the left knee, the dressing is clean and dry. Her leg is out in full extension. She is neurovascular intact.. Results & Data Results & Data Laboratory Results . Diagnostic Findings Postoperative x-rays of the left knee show the prosthesis to be in anatomic alignment without any evidence of fracture complication, or loosening.. PG Care Time/CCT Total # of Minutes Spent Total Time Spent with Patient: Total time spent is greater than 50% in coordination of care (as documented) at patient's floor/unit and/or counseling patient: Coding Level of Care Code 45658 Post Operative Follow-Up Diagnoses Status post total left knee replacement Z96.652
[2025-05-13 11:11] VITALS: RESP 16; O2SAT 95
[2025-05-13 11:54] VITALS: BP 120/75; PULSE 72
== END 2025-05-13 12:14 | disposition home or self-care (01) ==
LOC: ASU 06:32 → 3E 06:32